=== PATIENT | male | born 1940 | race Hispanic/Latino ===

== ENCOUNTER 2016-11-27 10:25 | Inpatient (IN) ==
[2016-11-27] MEDS ORDERED: LR 1,000 ML ONE ×2 (11:12→13:33)
[2016-11-27] MEDS ORDERED: KEFZOL 2 GM/D5W 2 GM/50 ML IVPB ONE (11:12)
[2016-11-27] MEDS ORDERED: TENORMIN ONE (11:27)
[2016-11-27 11:37] LABS: HEMATOCRIT 33.3 % (42.0-52.0); MCH 31.4 PG (27-31); MCV 95.1 FL (81-99); MPV 9.2 FL (7.4-10.4); RBC 3.5 XMIL (4.7-6.1)
[2016-11-27] MEDS ORDERED: NEOSPORIN G.U. IRRIGANT ONE (11:42)
[2016-11-27] MEDS ORDERED: SENSORCAINE 0.5%-EPI 1:200,000 ONE (11:42)
[2016-11-27] MEDS ORDERED: FENTANYL ONE (11:44)
[2016-11-27] MEDS ORDERED: DIPRIVAN 1% ONE (11:44)
[2016-11-27 11:56] LABS: AGAP 13; BUN 15 mg/dL (8-22); CALCIUM 8.2 mg/dL (8.8-10.2); CHLORIDE 102 mmol/L (98-107); COSMO 276; POTASSIUM 4.2 mmol/L (3.5-5.1); SODIUM 137 mmol/L (136-145); TCO2 22 mmol/L (25-35)
[2016-11-27] MEDS ORDERED: ZOFRAN ONE (12:33)
[2016-11-27] MEDS ORDERED: XYLOCAINE-MPF 2% ONE (12:33)
[2016-11-27] MEDS ORDERED: NEO-SYNEPHRINE ONE (12:33)
[2016-11-27] MEDS ORDERED: ROBINUL ONE (12:34)
[2016-11-27] MEDS: MORPHINE ONE ×2 (14:06→14:14)
[2016-11-27] MEDS ORDERED: MORPHINE PCA ONE ×2 (14:06→14:37)
[2016-11-27] MEDS ORDERED: MORPHINE ONE (14:26)
[2016-11-27] MEDS: PHENERGAN ONE ×3 (14:28→14:54)
[2016-11-27] MEDS ORDERED: LR 500 ML ONE (14:46)
[2016-11-27] MEDS: DILAUDID ONE ×2 (14:47→15:02)
[2016-11-27] MEDS ORDERED: DILAUDID PCA VIAL ONE (15:09)
--- NOTE | 2016-11-27 15:14 | OPERATIVE NOTE ---
PROCEDURE DATE: 11/27/2016 PREOPERATIVE DIAGNOSIS: Right ankle bimalleolar fracture dislocation. POSTOPERATIVE DIAGNOSIS: Right ankle bimalleolar fracture dislocation. PROCEDURE PERFORMED: Open reduction and fixation right lateral malleolus fracture with open deltoid ligament repair and avulsion fracture of the medial malleolus. ANESTHESIA: General. SURGEON: Ran Iglesias MD. EXECUTIVE STAFF ASSISTANT: Angelita. COMPLICATIONS: None. BLOOD LOSS: Minimal. TOURNIQUET TIME: Approximately an hour and a half. DESCRIPTION OF PROCEDURE: The patient was brought to operative suite and placed in supine position. After successful administration of general anesthesia, a well-padded tourniquet was placed on right proximal thigh. The right lower extremity was prepped and draped in the usual sterile fashion. Leg was exsanguinated. Tourniquet insufflated to 350 torr. A longitudinal made overlying the lateral malleolus fracture. It was dissected sharply through the skin down to the fracture site protecting the superficial peroneal nerve. The fracture was reduced. Interface screw was placed. A Synthes distal fibular locking plate was placed with 3 bicortical screws proximally, 2 of them locking and 5 locking screws distally. Excellent reduction of the lateral malleolus was obtained. Attention was then directed to the medial malleolus. A longitudinal incision was made overlying the medial malleolus. It was found to be an avulsion fracture of the deltoid ligament. The deltoid was then repaired back to the medial meniscus with a FiberWire suture through drill holes. Excellent repair was obtained. Then the ankle was stable. The fascia was reinforced with 0 Vicryl sutures. The wounds were copiously irrigated. The fascia were all closed with 0 Vicryl. Skin edge approximated with 2-0 Vicryl. Skin was closed with nylon. The wounds were injected with Marcaine and a sterile dressing and a well-padded splint with a stirrup were applied as well as a cooling blanket. The patient tolerated the procedure well without complication. At the end the procedure, all counts correct. The patient was transferred to the recovery room in stable condition. cc: Ran Iglesias MD
[2016-11-27] MEDS ORDERED: NORCO-10 PO PRN (15:53)
[2016-11-27] MEDS ORDERED: ZOFRAN IV PRN (16:19)
[2016-11-27] MEDS ORDERED: NARCAN IV PRN (16:19)
[2016-11-27] MEDS ORDERED: DILAUDID PCA VIAL IV PRN (16:19)
[2016-11-27] MEDS ORDERED: BENADRYL IV PRN (16:19)
[2016-11-27] MEDS: OFIRMEV 1000 MG/ISOTONIC SOLN 1,000 MG/100 ML BOTTLE IV SCH (17:44)
[2016-11-27] MEDS: KEFZOL 1 GM/D5W 1 GM/50 ML IVPB IV SCH (21:05)
[2016-11-27] MEDS: PERIDEX MT SCH (21:06)
[2016-11-28] MEDS: OFIRMEV 1000 MG/ISOTONIC SOLN 1,000 MG/100 ML BOTTLE IV SCH ×3 (01:35→12:34)
[2016-11-28] MEDS: KEFZOL 1 GM/D5W 1 GM/50 ML IVPB IV SCH ×2 (04:15→12:34)
[2016-11-28] MEDS ORDERED: NORCO-10 PO PRN (08:47)
[2016-11-28] MEDS: ELIQUIS PO SCH ×2 (09:32→21:18)
[2016-11-28] MEDS: ASPIRIN EC PO SCH (09:32)
[2016-11-28] MEDS: LIPITOR PO SCH (09:32)
[2016-11-28] MEDS: TENORMIN PO SCH ×2 (09:32→21:18)
[2016-11-28] MEDS: FLOMAX PO SCH ×2 (09:32→21:18)
[2016-11-28] MEDS: PERIDEX MT SCH ×2 (09:33→21:17)
[2016-11-28] MEDS: PATIENT'S OWN MED PO SCH ×2 (09:35→21:20)
--- NOTE | 2016-11-28 10:10 | PROGRESS NOTE ---
DATE: 11/28/2016 SUBJECTIVE: The patient is a pleasant 76-year-old male who is 1 day status post ORIF for right bimalleolar ankle fracture, per Dr. Iglesias. He is currently resting comfortably. OBJECTIVE: On physical exam, his splint is intact. He has good capillary refill distally to his toes, able to weakly flex and extend his toes. He is grossly neurovascularly intact. IMPRESSION: Postoperative day number 1, status post right open reduction/internal fixation, right bimalleolar ankle fracture dislocation. PLAN: At this point, we will Hep-Lock his IV and discontinue his CLIENT RELATION SPECIALIST. We will mobilize with physical therapy with nonweightbearing right lower extremity. We will consult Heavy Lift Rigger for discharge planning. cc: MD Ran Avelar MD
--- NOTE | 2016-11-28 12:24 | PROGRESS NOTE ---
DATE: 11/28/2016 SUBJECTIVE: Gaston Collazo is a 76-year-old male who is postoperative day 1 from an open reduction and internal fixation of his right ankle. He has no complaints. OBJECTIVE: GENERAL: He is a well-developed, well-nourished male. He is alert and oriented, and cooperative with exam. He has not been able to ambulate yet and he is complaining of pain in his ankle. VITAL SIGNS: Stable. He is afebrile. LABORATORY: His hemoglobin is 11. His hematocrit is 33%. ASSESSMENT: Right ankle fracture, open reduction and internal fixation. PLAN: We will change him to a full admission. I feel that he needs to be ambulatory, as he lives alone. I suspect he will likely need rehab. He is requiring pain medicine and has not been able to ambulate. We will continue to work with him with physical therapy. cc: Ran Iglesias MD
[2016-11-28] MEDS: LR 1,000 ML IV SCH ×4 (14:16→18:00)
[2016-11-28] MEDS: NORCO-10 PO PRN ×2 (17:07→21:17)
[2016-11-28] MEDS: ALDACTONE PO SCH (21:18)
[2016-11-28] MEDS: MORPHINE IV PRN (23:44)
[2016-11-29] MEDS: NORCO-10 PO PRN ×4 (04:04→20:24)
[2016-11-29] MEDS: ELIQUIS PO SCH ×2 (08:53→20:25)
[2016-11-29] MEDS: LIPITOR PO SCH (08:54)
[2016-11-29] MEDS: TENORMIN PO SCH ×2 (08:54→20:25)
[2016-11-29] MEDS: ASPIRIN EC PO SCH (08:54)
[2016-11-29] MEDS: PERIDEX MT SCH ×2 (08:54→20:25)
[2016-11-29] MEDS: FLOMAX PO SCH ×2 (08:54→20:24)
[2016-11-29] MEDS: OXY IR PO PRN ×2 (13:30→14:21)
--- NOTE | 2016-11-29 14:19 | PROGRESS NOTE ---
DATE: 11/29/2016 SUBJECTIVE: Patient is a 76-year-old male who is 2 days status post open reduction, internal fixation right lateral malleolus and deltoid ligament repair and open deltoid ligament repair and avulsion. The patient currently has experienced some pain and discomfort. He is not obtaining long-lasting relief from the p.o. medication at this point. OBJECTIVE: On physical exam, patient's right lower extremity, splint is intact and there appears to be good capillary refill distally. He is grossly neurovascularly intact. IMPRESSION: Postoperative day #2, status post left open reduction, internal fixation right ankle. PLAN: At this point, patient will continue being nonweightbearing right lower extremity. Hotbed Operator has been consulted for rehab placement. We will discontinue his Phillips and try the patient on Oxy-IR to see if he might obtain better relief. All his questions answered. cc: MD Ran Avelar MD
[2016-11-29] MEDS: MORPHINE IV PRN (14:42)
[2016-11-29] MEDS: ALDACTONE PO SCH (20:25)
[2016-11-29] MEDS: PATIENT'S OWN MED PO SCH ×2 (20:53→22:44)
[2016-11-30] MEDS: NORCO-10 PO PRN ×6 (00:31→21:34)
[2016-11-30] MEDS: FLOMAX PO SCH ×2 (09:32→21:35)
[2016-11-30] MEDS: TENORMIN PO SCH ×2 (09:32→21:34)
[2016-11-30] MEDS: ELIQUIS PO SCH ×2 (09:32→21:34)
[2016-11-30] MEDS: ASPIRIN EC PO SCH (09:32)
[2016-11-30] MEDS: LIPITOR PO SCH (09:32)
[2016-11-30] MEDS: PERIDEX MT SCH ×2 (09:32→21:35)
[2016-11-30] MEDS: PATIENT'S OWN MED PO SCH (09:33)
[2016-11-30] MEDS: LR 1,000 ML IV SCH ×4 (17:33→17:34)
[2016-11-30] MEDS: ALDACTONE PO SCH (21:34)
[2016-12-01] MEDS: NORCO-10 PO PRN ×4 (00:41→12:03)
[2016-12-01] MEDS ORDERED: MILK OF MAGNESIA PO PRN (04:05)
[2016-12-01 07:35] VITALS: BP 106/57
[2016-12-01] MEDS: PATIENT'S OWN MED PO SCH ×2 (07:40→08:04)
[2016-12-01] MEDS: PERIDEX MT SCH (08:02)
[2016-12-01] MEDS: FLOMAX PO SCH (08:02)
[2016-12-01] MEDS: ELIQUIS PO SCH (08:03)
[2016-12-01] MEDS: LIPITOR PO SCH (08:03)
[2016-12-01] MEDS: ASPIRIN EC PO SCH (08:03)
[2016-12-01] MEDS: TENORMIN PO SCH (08:03)
[2016-12-01] MEDS ORDERED: COLACE PO SCH (09:00)
--- NOTE | 2016-12-01 09:45 | DISCHARGE SUMMARY ---
ADMISSION DATE: 11/28/2016 DISCHARGE DATE: 12/01/2016 DISCHARGE DIAGNOSIS: Right ankle fracture dislocation with inability to ambulate, and pain control. DISCHARGE MEDICATIONS: See the discharge medication list. DISPOSITION: The patient is discharged to rehab with instructions to be nonweightbearing on his right lower extremity. Instructed to return for any signs or symptoms of infection or deep venous thrombosis. Instructed to return to see Dr. Iglesias on 12/10/2016. HOSPITAL COURSE: On the day of admission, the patient underwent open reduction internal fixation of his right ankle fracture dislocation. He has done well, except for difficulty with pain control and with ambulation. It is not safe for him to be discharged home. He will be discharged to a rehab facility. cc: Ran Iglesias MD
[2016-12-01] MEDS ORDERED: ALDACTONE PO SCH (17:00)
== END 2016-12-01 12:24 ==
LOC: 4N 10:25 → OR 10:25
PROVIDERS: ADMIT Orthopaedic Surgery; ATTEND Orthopaedic Surgery